=== PATIENT | male | born 1950 | race Caucasian/White ===

== ENCOUNTER 2019-01-03 01:18 | Inpatient (IN) | payer MEDICARE ==
[~2019-01-03] VITALS: Ht 180.3 cm; Wt 68.0 kg
[2019-01-03] MEDS ORDERED: INVOKANA300 MG (01:30)
[2019-01-03] MEDS ORDERED: ALTACE1.25 MG PO (01:31)
[2019-01-03] MEDS ORDERED: GLUCOPHAGE1000 MG PO (01:31)
[2019-01-03] MEDS ORDERED: GLIPIZIDE10 MG PO (01:31)
[2019-01-03] MEDS ORDERED: ZOCOR20 MG PO (01:32)
[2019-01-03] MEDS ORDERED: HCTZ25 MG PO (01:32)
[2019-01-03] MEDS ORDERED: TEMAZEPAM30 MG PO (01:33)
[2019-01-03] MEDS ORDERED: BAYER CHEWABLE81 MG PO (01:34)
[2019-01-03] MEDS ORDERED: COREG 3.1253.125 MG PO (01:34)
[2019-01-03] MEDS ORDERED: PLAVIX75 MG PO (01:34)
[2019-01-03] MEDS ORDERED: PIOGLITAZONE15 MG PO (01:35)
[2019-01-03 01:52] LABS: BASOPHILS 0.3 % (0-2); EOSINOPHILS 0.7 % (0-7); HEMATOCRIT 37.2 % (42.0-54.0); HEMOGLOBIN 13.3 g/dL (13.5-17.5); IMMATURE GRANULOCYTES 0.5 % (0-5); LYMPHOCYTES 17.6 % (15-50); MCH 30.4 pg (26.0-34.0); MCHC 35.8 g/dL (31.0-37.0); MCV 84.9 fL (80.0-100.0); MEAN PLATELET VOLUME 8.7 fL (7.4-10.4); MONOCYTES 10.4 % (2-11); NEUTROPHILS 70.5 % (40-80); PLATELET COUNT 379 10x3/uL (130-400); RBC 4.38 10x6/uL (4.20-6.10); RDW 14.1 % (11.5-14.5); WBC 14.7 10x3/uL (4.8-10.8)
[2019-01-03 01:57] LABS: APPEARANCE CLEAR (CLEAR); BILIRUBIN NEGATIVE (NEGATIVE); COLOR YELLOW (YELLOW); GLUCOSE 1000 mg/dL (NEGATIVE); KETONE MODERATE mg/dL (NEGATIVE); NITRITE NEGATIVE (NEGATIVE); PROTEIN NEGATIVE (NEGATIVE); SPECIFIC GRAVITY 1.015 (1.005-1.020); UROBILINOGEN NORMAL (NORMAL)
[2019-01-03 02:14] LABS: ALBUMIN 2.7 g/dL (3.4-5.0); ALKALINE PHOSPHATASE 114 U/L (46-116); ALT (SGPT) 38 U/L (10-68); AMYLASE - SERUM 107 U/L (25-115); BILIRUBIN - TOTAL 0.93 mg/dL (0.2-1.3); C-REACTIVE PROTEIN 14.8 mg/dL (0.0-0.9); CALC OSMOLALITY 278 mosm/kg (275-300); CARBON DIOXIDE 25.3 mmol/L (21.0-32.0); CHLORIDE - SERUM 96 mmol/L (98-107); CKMB 0.4 U/L (0.0-3.6); CREATINE KINASE 33 UL (21-232); CREATININE - SERUM 1.2 mg/dL (0.6-1.3); GLUCOSE 126 mg/dL (74-106); LIPASE 471 U/L (73-393); POTASSIUM - SERUM 4.3 mmol/L (3.5-5.1); PROTEIN - SERUM 7.7 g/dL (6.4-8.2); SODIUM 135 mmol/L (136-145); TROPONIN-I < 0.017 ng/mL (0.000-0.060); UREA NITROGEN 32 mg/dL (7-18); eGFR NON AFRICAN AMERICAN 64 mL/min (90-120)
[2019-01-03 02:14] LABS: UDS - AMPHET NEGATIVE QUAL (NEGATIVE); UDS - BARB NEGATIVE QUAL (NEGATIVE); UDS - BENZO NEGATIVE QUAL (NEGATIVE); UDS - COCAINE NEGATIVE QUAL (NEGATIVE); UDS - OPIATE POSITIVE QUAL (NEGATIVE); UDS - PCP NEGATIVE QUAL (NEGATIVE); UDS - THC NEGATIVE QUAL (NEGATIVE)
--- NOTE | 2019-01-03 03:25 | NUR ---
RECEIVED PT FROM ER VIA STRETCHER. ALERT AND ORIENTED X4. GEN WEAKNESS NOTED. C/O PAIN IN NECK, SHOULDERS AND BACK 4 ON PAIN SCALE. THIS IS HIS ONLY COMPLAINT ALONG WITH GEN WEAKNESS. DENIES N/V SINCE 2 WEEKS AGO. TELEMETRY APPLIED AND SHOWS SR WITH RATE OF 92. NS @ 200 ML/HR INFUSING IN LT FOREARM WITHOUT DIFF. SALINE LOCK NOTED TO RT AC. NO EDEMA NOTED. BED ALARM ON FOR PT SAFETY. SR ELEVATED X2. CL IN REACH.
[2019-01-03 04:11] VITALS: BP 138/75; BMI 20.9
[2019-01-03 05:01] VITALS: BP 120/54
[2019-01-03 08:38] VITALS: BP 122/72; BP 123/66
--- NOTE | 2019-01-03 09:00 | NUR ---
PT ALERT X 4. BREATH SOUNDS CLEAR BILAT. MURMUR NOTED. TELEMETRY IN PLACE. IV TO LEFT FOREARM, PATENT, DRESSING CDI. PT REPORTING PAIN OF 3/10 TO SHOULDERS, WILL MONITOR. BED LOW, CALL LIGHT IN REACH. NO OTHER NEEDS AT THIS TIME.
[2019-01-03 13:13] LABS: CKMB 0.5 U/L (0.0-3.6); CREATINE KINASE 38 UL (21-232); TROPONIN-I < 0.017 ng/mL (0.000-0.060)
[2019-01-03 14:09] VITALS: Ht 180.3 cm; Wt 68.0 kg
[2019-01-03 16:12] VITALS: BP 130/79
[2019-01-03 19:18] LABS: CKMB 0.6 U/L (0.0-3.6); CREATINE KINASE 32 UL (21-232)
[2019-01-03 19:23] LABS: TROPONIN-I < 0.017 ng/mL (0.000-0.060)
[2019-01-03 20:00] VITALS: BP 128/78
--- NOTE | 2019-01-03 23:25 | NUR ---
REC'D CHGE OF SHIFT WALKING ROUNDS SUPINE POSITION EYES CLOSED RESP. DEEP AND EVEN.WILL CONTINUE TO MONITOR FOR ANY CHGES AND FOLLOW CURRENT PLAN OF CARE
[2019-01-04] VITALS (7 sets, daily range): BP systolic 103–172; BP diastolic 60–82
[2019-01-04 01:16] LABS: CKMB 0.3 U/L (0.0-3.6); CREATINE KINASE 44 UL (21-232)
[2019-01-04 01:18] LABS: TROPONIN-I < 0.017 ng/mL (0.000-0.060)
--- NOTE | 2019-01-04 02:41 | NUR ---
I have reviewed this patient and I concur with the Shift Assessment completed by the Licensed Practical Nurse today this shift.
[2019-01-04 06:30] LABS: BASOPHILS 0.6 % (0-2); EOSINOPHILS 2.1 % (0-7); HEMATOCRIT 32.9 % (42.0-54.0); HEMOGLOBIN 11.2 g/dL (13.5-17.5); IMMATURE GRANULOCYTES 0.6 % (0-5); LYMPHOCYTES 17.4 % (15-50); MCH 29.6 pg (26.0-34.0); MEAN PLATELET VOLUME 9.4 fL (7.4-10.4); MONOCYTES 13.2 % (2-11); NEUTROPHILS 66.1 % (40-80); PLATELET COUNT 383 10x3/uL (130-400); RBC 3.78 10x6/uL (4.20-6.10); RDW 14.6 % (11.5-14.5); WBC 12.3 10x3/uL (4.8-10.8)
[2019-01-04 07:25] LABS: ALBUMIN 2.1 g/dL (3.4-5.0); ALKALINE PHOSPHATASE 94 U/L (46-116); ALT (SGPT) 34 U/L (10-68); BILIRUBIN - TOTAL 0.75 mg/dL (0.2-1.3); CALCIUM 8.6 mg/dL (8.5-10.1); CARBON DIOXIDE 19.7 mmol/L (21.0-32.0); CHLORIDE - SERUM 101 mmol/L (98-107); LIPASE 453 U/L (73-393); POTASSIUM - SERUM 3.8 mmol/L (3.5-5.1); PROTEIN - SERUM 6.3 g/dL (6.4-8.2); SODIUM 133 mmol/L (136-145)
--- NOTE | 2019-01-04 07:25 | NUR ---
PT IS RESTING IN BED WITH EYES OPEN. RESPIRATIONS ARE EVEN AND UNLABORED. PT DENIES PRESENCE OF PAIN/N/V AT THIS TIME. PT DENIES PRESENCE OF DIZZINE/SOB AT THIS TIME. PIV TO LEFT FA IS INFUSING WITHOUT DIFFICULTY. PIV TO R AC IS PATENT THEN SL. 500ML OF CLEAR YELLOW URINE NOTED IN URINAL ON BEDSIDE TABLE. WILL EMPTY. PT DENIES PRESENCE OF BURNING/URGENCY/FREQUENCY OF URINATION. BED IS IN THE LOWEST POSITION. CALL LIGHT AND BEDSIDE TABLE ARE WITHIN REACH. SIDE RAILS X 2. PT DENIES FURTHER NEEDS. WILL CONT TO MONITOR.
[2019-01-04 07:26] LABS: AMYLASE - SERUM 76 U/L (25-115); CALC OSMOLALITY 272 mosm/kg (275-300); CREATININE - SERUM 0.8 mg/dL (0.6-1.3); GLUCOSE 188 mg/dL (74-106); UREA NITROGEN 19 mg/dL (7-18); eGFR NON AFRICAN AMERICAN > 90 mL/min (90-120)
--- NOTE | 2019-01-04 20:00 | NUR ---
ALERT ITTING UP IN BED, DENIES PAIN OR NEEDS AT THIS TIME, SEE SHIFT ASSESSMENT, CALL RAMON GILES
[2019-01-05 04:30] VITALS: BP 107/63
--- NOTE | 2019-01-05 07:00 | NUR ---
PT IS RESTING IN BED WITH EYES OPEN. RESPIRATIONS ARE EVEN AND UNLABORED. PT DENIES PRESENCE OF PAIN/N/V. PT REPORTS "I AM STARTING TO FEEL BETTER". PIV INFUSING TO LEFT FA WITHOUT DIFFICULTY. CLEAR YELLOW URINE NOTED TO BEDSIDE URINAL. BED IS IN THE LOWEST POSITION. CALL LIGHT AND BEDSIDE TABLE ARE WITHIN REACH. SIDE RAILS X 2. PT DENIES FURTHER NEEDS. WILL CONT TO MONITOR.
[2019-01-05 07:12] LABS: BASOPHILS 0.9 % (0-2); EOSINOPHILS 2.7 % (0-7); HEMATOCRIT 30.6 % (42.0-54.0); HEMOGLOBIN 10.6 g/dL (13.5-17.5); IMMATURE GRANULOCYTES 0.5 % (0-5); LYMPHOCYTES 20.4 % (15-50); MCH 29.5 pg (26.0-34.0); MCHC 34.6 g/dL (31.0-37.0); MCV 85.2 fL (80.0-100.0); MEAN PLATELET VOLUME 8.8 fL (7.4-10.4); MONOCYTES 10.2 % (2-11); NEUTROPHILS 65.3 % (40-80); PLATELET COUNT 328 10x3/uL (130-400); RBC 3.59 10x6/uL (4.20-6.10); RDW 14.1 % (11.5-14.5); WBC 10.1 10x3/uL (4.8-10.8)
[2019-01-05 07:41] LABS: ALKALINE PHOSPHATASE 90 U/L (46-116); ALT (SGPT) 33 U/L (10-68); AMYLASE - SERUM 91 U/L (25-115); BILIRUBIN - TOTAL 0.53 mg/dL (0.2-1.3); CALC OSMOLALITY 277 mosm/kg (275-300); CALCIUM 8.2 mg/dL (8.5-10.1); CARBON DIOXIDE 20.5 mmol/L (21.0-32.0); CHLORIDE - SERUM 104 mmol/L (98-107); CREATININE - SERUM 0.9 mg/dL (0.6-1.3); LIPASE 614 U/L (73-393); POTASSIUM - SERUM 3.8 mmol/L (3.5-5.1); PROTEIN - SERUM 5.6 g/dL (6.4-8.2); SODIUM 135 mmol/L (136-145); UREA NITROGEN 16 mg/dL (7-18); VANCOMYCIN - TROUGH 13.2 ug/mL (10.0-20.0); eGFR NON AFRICAN AMERICAN 89 mL/min (90-120)
[2019-01-05 07:42] LABS: GLUCOSE 233 mg/dL (74-106)
[2019-01-05 08:47] VITALS: BP 111/67
[2019-01-05] MEDS ORDERED: FLORAJEN3 CAPS460 MG PO (12:10)
[2019-01-05] MEDS ORDERED: PROTONIX40 MG PO (12:11)
[2019-01-05] MEDS ORDERED: VIBRAMYCIN 100100 MG PO (12:12)
--- NOTE | 2019-01-05 12:45 | MORECARE ---
CASE MANAGEMENT DISCHARGE SUMMARY PATIENT: Allison MARTINEZ UNIT: [id number] ADM DATE: 01/03/19 AGE: 68 : [birth year] SEX: M ROOM/BED: D.2205 AUTHOR: LIBAN RUDOLPH PHYSICIAN: REFERRING PHYSICIAN: LIZ BARCENAS MD DATE OF SERVICE: 01/05/19 Discharge Plan Patient Name: Allison MARTINEZ Facility: [facility]:[place] : 1950 Planned Disposition: Home or Self Care Anticipated Discharge Date: Discharge Date: Expected LOS: Initial Reviewer: [email or web address] Initial Review Date: 01/03/2019 Generated: 01/05/19 1:45 pm Comments DCP- Discharge Planning Updated by [email or web address]: Willa Rosales on 01/05/19 11:[address] Patient Name: Allison MARTINEZ Admission Status: ER Accout number: [id number] Admission Date: 01-03-2019 : 1950 Admission Diagnosis: Attending: MAIK BARCENAS Current LOS: 2 Anticipated DC Date: Planned Disposition: Home or Self Care Primary Insurance: MEDICARE A & B Discharge Planning Comments: CM met with patient to complete initial dc planning assessment. CM educated patient on the CM role and verbal consent given by patient to complete assessment. Patient lives at home in [place] where he is independent with his care. At discharge patient plans to return home and feels this is a safe discharge. CM discussed availability of home health, rehab services, and medical equipment. Kwame will be his cdl team truck driver home. Patient denied known discharge needs at this time. CM will continue to follow and will assist as needed with dc plans/needs. Dirt Bike Mechanic: Willa Rosales DCPIA - Discharge Planning Initial Assessment Updated by [email or web address]: Willa Rosales on 01/05/19 12:38 pm * Is the patient Alert and Oriented? Yes * PCP LOCHIA * Pharmacy [facility] * Preadmission Environment Home with Family * ADLs Independent * Equipment None * List name and contact numbers for known caregivers / representatives who currently or will assist patient after discharge: KWAME [phone] * Verbal permission to speak to the caregivers and representatives has been obtained from the patient. N/A * Community resources currently utilized None * Additional services required to return to the preadmission environment? No * Can the patient safely return to the preadmission environment? Yes * Has this patient been hospitalized within the prior 30 days at any hospital? No Patient Name: Allison MARTINEZ Page [phone] at 1245 All edits/amendments must be made on the electronic document DICTATION DATE: 01/05/19 124 HEALTH UNIT CLERK: BJORN 01/05/19 1245 RPT#: [id number] DC DATE: STATUS: ADM IN [facility] [address] [place] [address] END OF REPORT
[2019-01-05 13:10] LABS: EHRLICHIA CHAFF IGG Negative (Neg:<1:64); EHRLICHIA CHAFF IGM Negative (Neg:<1:20); HGE IGG TITER Negative (Neg:<1:64); HGE IGM TITER Negative (Neg:<1:20)
--- NOTE | 2019-01-05 15:41 | NUR ---
ALL DISCHARGE INSTRUCTIONS COVERED WITH PT AND PT FAMILY MEMBER. PT AND PT FAMILY MEMBER DENY FURTHER QUESTIONS/CONCERNS/NEEDS. ALL DISCHARGE PAPERS SIGNED. PIV TO RIGHT AC REMOVED WITH CATHETER TIP INTACT. LEFT FA PIV REMOVED WITH CATHETER TIP INTACT. DRESSING APPLIED TO BOTH IV SITES.
--- NOTE | 2019-01-05 15:45 | NUR ---
PT TRANSPORTED FROM ROOM VIA WHEELCHAIR FOR TRANSPORT HOME. PT DENIES FURTHER QUESTIONS/NEEDS/CONCERNS.
--- NOTE | 2019-01-06 12:41 | MORECARE ---
CASE MANAGEMENT DISCHARGE SUMMARY PATIENT: Allison MARTINEZ UNIT: [id number] ADM DATE: 01/03/19 AGE: 68 : [birth year] SEX: M ROOM/BED: D.2205 AUTHOR: LIBAN RUDOLPH PHYSICIAN: REFERRING PHYSICIAN: LIZ BARCENAS MD DATE OF SERVICE: 01/06/19 Discharge Plan Patient Name: Allison MARTINEZ Facility: [facility]:[place] : 1950 Planned Disposition: Home or Self Care Anticipated Discharge Date: Discharge Date: 01/05/2019 Expected LOS: 0 Initial Reviewer: [email or web address] Initial Review Date: 01/03/2019 Generated: 01/06/19 1:40 pm Comments DCP- Discharge Planning Updated by [email or web address]: Willa Rosales on 01/05/19 11:[address] Patient Name: Allison MARTINEZ Admission Status: ER Accout number: [id number] Admission Date: 01-03-2019 : 1950 Admission Diagnosis: Attending: MAIK BARCENAS Current LOS: 2 Anticipated DC Date: Planned Disposition: Home or Self Care Primary Insurance: MEDICARE A & B Discharge Planning Comments: CM met with patient to complete initial dc planning assessment. CM educated patient on the CM role and verbal consent given by patient to complete assessment. Patient lives at home in [place] where he is independent with his care. At discharge patient plans to return home and feels this is a safe discharge. CM discussed availability of home health, rehab services, and medical equipment. Kwame will be his drivers' cash clerk home. Patient denied known discharge needs at this time. CM will continue to follow and will assist as needed with dc plans/needs. Chief Dog License Inspector: Willa Rosales DCPIA - Discharge Planning Initial Assessment Updated by [email or web address]: Willa Rosales on 01/05/19 12:38 pm * Is the patient Alert and Oriented? Yes * PCP LOCHIA * Pharmacy [facility] * Preadmission Environment Home with Family * ADLs Independent * Equipment None * List name and contact numbers for known caregivers / representatives who currently or will assist patient after discharge: KWAME [phone] * Verbal permission to speak to the caregivers and representatives has been obtained from the patient. N/A * Community resources currently utilized None * Additional services required to return to the preadmission environment? No * Can the patient safely return to the preadmission environment? Yes * Has this patient been hospitalized within the prior 30 days at any hospital? No Last DP export: 01/05/19 11:45 a Patient Name: Allison MARTINEZ Page [id number] at 1241 All edits/amendments must be made on the electronic document DICTATION DATE: 01/06/191239 KEYPUNCH OPERATOR: BJORN 01/06/191239 RPT#: [id number] DC DATE:01/05/19 STATUS: DIS IN [id number] [place] [address] END OF REPORT
[2019-01-06 16:08] LABS: RMSF IGM 1.46 index (0.00-0.89)
--- NOTE | 2019-01-10 13:38 | EC ---
PATIENT:Allison MARTINEZ DATE OF SERVICE: 01/03/19 SEX: M MEDICAL RECORD: [id number] DATE OF : [birth year] LOCATION:[facility] AGE OF PATIENT: 68 ADMISSION DATE: 01/03/19 REFERRING PHYSICIAN: INTERPRETING PHYSICIAN: RUBEN FLORES MD ECHOCARDIOGRAM REPORT ECHO CHARGES 4 ECHO COMPLETE Date: 01/03/19 CLINICAL DIAGNOSIS: MURMUR,ASSESS FOR ENDOCARDITIS ECHOCARDIOGRAPHIC MEASUREMENTS (adult normal given) AC root (d.<3.7cm) 2.3 cm LV Septum d (<1.2 cm> 1.2 cm Valve Excursion 1.3 cm LV Septum (systole) 1.5 cm Left Atria (s.<4.0cm> 3.1 cm LVPW d(<1.2cm) 1.0 cm RV (d.<2.3cm) 3.3 cm LVPW (sytole) 1.2 cm LV diastole(<5.6CM) 4.2 cm MV E-F(>70mm/sec) cm LV systole 2.9 cm LVOT Diameter 2.0 cm MV exc.(>10mm) cm Est.ejection fraction (50-75%) % DOPPLER: LVIT cm/sec A 103 cm/sec E 87.0 cm/sec LA cm/sec RVSP 23.2 mmHg LVOT 244 cm/sec AOP1/2T m/s Asc. Ao 210 cm/sec RVOT 67 cm/sec RA cm/sec PA 74 cm/sec AV Gradient Peak 17.7 mmHg AV Mean 11.4 mmHg AV Area 3.2 cm MV Gradient Peak 5.3 mmHg MV Mean 3.8 mmHg MV Area cm COMMENTS: Hip Hop Dancer: Avril BLANCO Microbiology Instructor: 1 Dr. Flores TAPE# PACS Pericardial Effusion N DATE OF SERVICE: PROCEDURE: Echocardiogram. FINDINGS: 1. Left ventricular chamber size is within normal limits. Left ventricular systolic function is normal at 60%. 2. Left atrium, right atrium, and right ventricular chamber sizes are within normal limits. 3. Valvular structures: Aortic valve demonstrates mild calcific aortic ECHOCARDIOGRAM REPORT [id number] Allison MARTINEZ stenosis, valve area calculates greater than 2.0 cm-squared with gradient of 17 mm across the valve. The remaining valvular structures have normal structure and motion. No evidence of vegetative endocarditis. 4. Doppler interrogation reveals only trace tricuspid regurgitation, no other valvular insufficiency or stenosis. Pulmonary systolic pressure is estimated 23 mmHg. 5. No evidence of pericardial effusion or left ventricular thrombus. TRANSINT:[id number] Voice Confirmation ID: [id number] DOCUMENT ID: [id number] RUBEN FLORES MD at 1338 CC: [id number] DICTATION DATE: 01/03/19 1210 POWER MACHINE OPERATOR: 01/03/19 1242 DIS IN 01/05/19 [id number] [place] [address]
[2019-01-11 16:08] LABS: F. TULARENSIS - IGG Negative (Negative); F. TULARENSIS - IGM Negative (Negative)
== END 2019-01-05 15:46 | disposition home or self-care (01) | DRG 438 ==
LOC: D.ER 01:18 → D.MS 02:31
PROVIDERS: Family Medicine; ADMIT Emergency Medicine; ATTEND Emergency Medicine
DX: K85.90 Acute pancreatitis without necrosis or infection, unspecified (principal); E43 Unspecified severe protein-calorie malnutrition; E11.9 Type 2 diabetes mellitus without complications; I10 Essential (primary) hypertension; I25.10 Atherosclerotic heart disease of native coronary artery without angina pectoris; E86.0 Dehydration